=== PATIENT | male | born 1990 | race African-American/Black ===

== ENCOUNTER 2018-12-22 08:12 | Emergency (ER) | payer MEDICAID ==
[~2018-12-22] VITALS: Ht 177.8 cm; Wt 100.0 kg
[2018-12-22] MEDS ORDERED: ONDANSETRON HCL 4MG/2ML INJ IV STA (08:40)
[2018-12-22] MEDS ORDERED: SODIUM CHLORIDE 0.9% 1,000 ML IV ONE (08:40)
[2018-12-22] MEDS ORDERED: MORPHINE SULFATE 4 MG/ML CPJ (NOT FOR IM USE) IV STA (08:40)
[2018-12-22 09:23] LABS: CHLORIDE 112 mEq/L (98-107)
[2018-12-22 09:25] LABS: PROTHROMBIN TIME 10.7 sec (9.6-11.0)
[2018-12-22 09:27] LABS: BASOPHILS % 0.6 % (0.0-2.0); EOSINOPHILS % 2.7 % (0.0-5.0); HEMATOCRIT. 44.3 % (42.0-52.0); HEMOGLOBIN. 14.8 g/dL (14.0-18.0); LYMPHOCYTES % 19.6 % (20.0-50.0); MEAN CORPUSCULAR HEMOGLOBIN 28.7 pg (28.0-32.0); MEAN CORPUSCULAR VOLUME 86.2 fL (80.0-94.0); MEAN PLATELET VOLUME 7.8 fl (7.4-10.4); MONOCYTES % 9.8 % (2.0-8.0); NEUTROPHILS % 67.3 % (40.0-76.0); PLATELET 237 x1000/uL (130-400); RED BLOOD CELL COUNT 5.14 mill/uL (4.7-6.1); RED CELL DISTRIBUTION WIDTH 13.7 % (11.6-14.6)
[2018-12-22 10:51] VITALS: BP 124/62
== END 2018-12-22 11:02 | disposition home or self-care (01) ==
LOC: ER 08:12
DX: M54.5 Low back pain (principal); V43.12XA Car passenger injured in collision with other type car in nontraffic accident, initial encounter; Y93.89 Activity, other specified; Y92.414 Local residential or business street as the place of occurrence of the external cause
CPT/HCPCS: 36415; 72131; 80053; 85025; 85610; 96374; 96375; 99284; J2270; J2405; J7030